=== PATIENT | male | born 1960 | race African-American/Black ===

== ENCOUNTER 2019-11-25 12:46 | Inpatient (IN) | payer MEDICAID ==
[~2019-11-25] VITALS: Ht 175.3 cm; Wt 63.5 kg
[2019-11-25] MEDS ORDERED: ONDANSETRON HCL 4MG/2ML INJ IV STA (14:33)
[2019-11-25] MEDS ORDERED: SODIUM CHLORIDE 0.9% 1,000 ML IV ONE (14:33)
[2019-11-25 14:59] LABS: CHLORIDE 77 mEq/L (98-107)
[2019-11-25 15:07] LABS: INR 1.1; PROTHROMBIN TIME 11.2 sec (9.6-11.0)
[2019-11-25 15:14] LABS: HEMATOCRIT. 42.9 % (42.0-52.0); HEMOGLOBIN. 13.9 g/dL (14.0-18.0); MEAN CORPUSCULAR HEMOGLOBIN 24.1 pg (28.0-32.0); MEAN CORPUSCULAR VOLUME 74.4 fL (80.0-94.0); MEAN PLATELET VOLUME 8.2 fl (7.4-10.4); PLATELET 290 x1000/uL (130-400); RED BLOOD CELL COUNT 5.76 mill/uL (4.7-6.1); RED CELL DISTRIBUTION WIDTH 15.4 % (11.6-14.6)
[2019-11-25 15:41] LABS: PLATELET ESTIMATE NORMAL
[2019-11-25 16:42] LABS: CLARITY URINE CLEAR (CLEAR); COLOR URINE YELLOW (YELLOW); KETONES URINE 2+ (NEGATIVE); LEUKOCYTE ESTERASE URINE NEGATIVE (NEGATIVE); NITRITE URINE NEGATIVE (NEGATIVE); OCCULT BLOOD URINE NEGATIVE (NEGATIVE); PROTEIN URINE TRACE (NEGATIVE); SPECIFIC GRAVITY URINE 1.028 (1.005-1.030)
[2019-11-25] MEDS ORDERED: LEVOFLOXACIN 500MG PREMIX 100 ML IV NR (17:45)
[2019-11-25] MEDS ORDERED: MORPHINE SULFATE 2 MG/ML CPJ (NOT FOR IM USE) IV PRN (19:15)
[2019-11-25] MEDS ORDERED: ONDANSETRON HCL 4MG/2ML INJ IV PRN (19:15)
[2019-11-25] MEDS ORDERED: SODIUM CHLORIDE 0.9% 1,000 ML IV SCH (19:15)
[2019-11-25] MEDS ORDERED: PIPERACILLIN/TAZOBACTAM 3.375 G in DEXT 5% WATER 100 ML IV SCH (19:30)
[2019-11-25 21:15] VITALS: BP 106/75
[2019-11-25] MEDS ORDERED: IOHEXOL-300 100 ML BOTTLE ONE (23:20)
[2019-11-26] VITALS: BP 105/68
[2019-11-26] MEDS: PIPERACILLIN/TAZOBACTAM 3.375 G in DEXT 5% WATER 100 ML IV SCH ×4 (00:16→22:26)
[2019-11-26] MEDS ORDERED: FERR-71 PO (03:32)
[2019-11-26] MEDS ORDERED: DICY10CA88 PO (03:32)
[2019-11-26] MEDS ORDERED: RIVA10TA PO (03:32)
[2019-11-26 04:00] VITALS: BP 95/63
[2019-11-26 06:34] LABS: CHLORIDE 87 mEq/L (98-107)
[2019-11-26 06:49] LABS: BASOPHILS % 0.1 % (0.0-2.0); EOSINOPHILS % 0.2 % (0.0-5.0); HEMATOCRIT. 40.5 % (42.0-52.0); HEMOGLOBIN. 13.4 g/dL (14.0-18.0); LYMPHOCYTES % 7.8 % (20.0-50.0); MEAN CORPUSCULAR HEMOGLOBIN 24.2 pg (28.0-32.0); MEAN CORPUSCULAR VOLUME 73.2 fL (80.0-94.0); MEAN PLATELET VOLUME 8.2 fl (7.4-10.4); MONOCYTES % 8.2 % (2.0-8.0); NEUTROPHILS % 83.7 % (40.0-76.0); PLATELET 393 x1000/uL (130-400); RED BLOOD CELL COUNT 5.53 mill/uL (4.7-6.1); RED CELL DISTRIBUTION WIDTH 15.3 % (11.6-14.6)
[2019-11-26 08:00] VITALS: BP 90/64
[2019-11-26] MEDS ORDERED: BUPIVACAINE HCL 0.5% (5MG/ML) 50ML ONE (09:15)
[2019-11-26] MEDS ORDERED: POTASSIUM CHLORIDE INJ 40 MEQ in DEXT 5% WATER 500 ML IV STA (09:21)
[2019-11-26] MEDS ORDERED: ONDANSETRON HCL 4MG/2ML INJ IV PRN ×2 (09:45→12:45)
[2019-11-26] MEDS ORDERED: ACETAMINOPHEN 650MG SUPP PR PRN ×2 (09:45)
[2019-11-26] MEDS ORDERED: SUCCINYLCHOLINE CHLORIDE 200MG/10ML IV ONE (10:00)
[2019-11-26] MEDS ORDERED: PROPOFOL 200MG/20ML VIAL IV ONE (10:00)
[2019-11-26] MEDS ORDERED: CEFAZOLIN SODIUM 1000MG/VIAL ONE (10:00)
[2019-11-26] MEDS ORDERED: METOCLOPRAMIDE HCL 10MG/2ML VIAL ONE (10:00)
[2019-11-26] MEDS ORDERED: EPHEDRINE SULFATE 50MG/ML VIAL ONE (10:00)
[2019-11-26] MEDS ORDERED: SODIUM CHLORIDE 0.9% 10ML VIAL ONE (10:00)
[2019-11-26] MEDS ORDERED: ONDANSETRON HCL 4MG/2ML INJ ONE (10:00)
[2019-11-26] MEDS ORDERED: PHENYLEPHRINE HCL 10 MG/ML 1ML (IV VIAL) IV ONE (10:00)
[2019-11-26] MEDS ORDERED: GLYCOPYRROLATE 0.2 MG/ML 2ML VIAL ONE (10:00)
[2019-11-26] MEDS ORDERED: FENTANYL CITRATE/PF 50MCG/ML 2ML VIAL ONE (10:00)
[2019-11-26] MEDS ORDERED: MIDAZOLAM HCL 2 MG/2 ML VIAL ONE (10:00)
[2019-11-26] MEDS ORDERED: ROCURONIUM BROMIDE 10MG/ML VIAL 5ML IV ONE (10:00)
[2019-11-26] MEDS ORDERED: NEOSTIGMINE METHYLSULFATE 1MG/ML 10 ML VIAL ONE (10:00)
[2019-11-26] MEDS ORDERED: POTASSIUM CHLORIDE INJ 40 MEQ in DEXT 5% WATER 250 ML IV NR (10:00)
[2019-11-26] MEDS ORDERED: LIDOCAINE HCL/PF 1% 10 MG/ML 5ML VIAL ONE (10:00)
[2019-11-26] MEDS ORDERED: ALBUMIN HUMAN 12.5G/250ML (5%) IV ONE ×2 (10:03→10:04)
[2019-11-26] MEDS ORDERED: ETOMIDATE 2MG/ML 10ML VIAL IV ONE (10:09)
[2019-11-26 11:56] LABS: HEMATOCRIT. 33.1 % (42.0-52.0); HEMOGLOBIN. 10.6 g/dL (14.0-18.0); MEAN CORPUSCULAR HEMOGLOBIN 23.8 pg (28.0-32.0); MEAN CORPUSCULAR VOLUME 74.1 fL (80.0-94.0); MEAN PLATELET VOLUME 7.4 fl (7.4-10.4); PLATELET 302 x1000/uL (130-400); RED BLOOD CELL COUNT 4.47 mill/uL (4.7-6.1); RED CELL DISTRIBUTION WIDTH 15.2 % (11.6-14.6)
[2019-11-26] MEDS ORDERED: LEVOFLOXACIN 500MG PREMIX 100 ML IV SCH (12:00)
[2019-11-26 12:02] LABS: CHLORIDE 97 mEq/L (98-107)
[2019-11-26] MEDS: HYDROMORPHONE HCL/PF 2MG/ML CPJ IV PRN ×3 (12:49→13:11)
[2019-11-26 14:08] LABS: PLATELET ESTIMATE NORMAL
[2019-11-26] MEDS: METRONIDAZOLE 500 MG PREMIX 100 ML IV SCH (15:10)
[2019-11-26 16:00] VITALS: BP 99/66
[2019-11-26 16:22] LABS: BG BASE EXCESS -4.2 mmol/L (-2.0-2.0); BG CARBOXYHEMOGLOBIN 0.7 % (0.5-1.5); BG DEOXYHEMOGLOBIN 2.3 % (0.0-5.0); BG FRACTION INSPIRED OXYGEN 28; BG HCO3 ACT 20.6 mmol/L (22.0-26.0); BG METHEMOGLOBIN 0.3 % (0.0-1.5); BG OXYGEN SATURATION 97.7 % (92.0-98.5); BG OXYHEMOGLOBIN 96.7 % (94.0-97.0); BG PCO2 36.9 mmHg (35.0-45.0); BG PH 7.365 (7.350-7.450); BG PO2 108.7 mmHg (75.0-100.0); BG SAMPLE SITE LEFT RADIAL; BG TOTAL HEMOGLOBIN 12.8 g/dL (12.0-18.0); BG VENT MODE NASAL CANNULA
[2019-11-26] MEDS: MORPHINE SULFATE 2 MG/ML CPJ (NOT FOR IM USE) IV PRN (17:02)
[2019-11-26] MEDS ORDERED: LORAZEPAM 2MG/ML CPJ IV PRN (20:15)
[2019-11-26 20:35] VITALS: BP 103/66
[2019-11-26] MEDS: DEXT 5%/0.45% NACL KCL 20MEQ/L 1,000 ML IV SCH (20:46)
[2019-11-26] MEDS: FAMOTIDINE 20MG/2ML VIAL IV SCH (20:47)
[2019-11-26 23:53] VITALS: BP 91/66
[2019-11-27] MEDS: PIPERACILLIN/TAZOBACTAM 3.375 G in DEXT 5% WATER 100 ML IV SCH ×2 (01:56→06:55)
[2019-11-27] MEDS: METRONIDAZOLE 500 MG PREMIX 100 ML IV SCH (02:28)
[2019-11-27 04:00] VITALS: BP 98/68
[2019-11-27 07:00] LABS: CHLORIDE 97 mEq/L (98-107)
[2019-11-27 07:02] LABS: HEMATOCRIT. 37.1 % (42.0-52.0); HEMOGLOBIN. 11.9 g/dL (14.0-18.0); MEAN CORPUSCULAR VOLUME 74.8 fL (80.0-94.0); MEAN PLATELET VOLUME 8.1 fl (7.4-10.4); PLATELET 305 x1000/uL (130-400); RED BLOOD CELL COUNT 4.96 mill/uL (4.7-6.1); RED CELL DISTRIBUTION WIDTH 15.2 % (11.6-14.6)
[2019-11-27 07:06] LABS: PHOSPHORUS 2.3 mg/dL (2.5-4.9)
[2019-11-27 08:00] VITALS: BP 100/66
[2019-11-27] MEDS: DEXT 5%/0.45% NACL KCL 20MEQ/L 1,000 ML IV SCH (08:00)
[2019-11-27] MEDS: FAMOTIDINE 20MG/2ML VIAL IV SCH ×2 (09:41→21:10)
[2019-11-27] MEDS ORDERED: METRONIDAZOLE 500 MG PREMIX 100 ML IV SCH (10:00)
[2019-11-27] MEDS: DEXT 5%/0.9% NACL 1,000 ML IV SCH ×2 (12:00→21:10)
[2019-11-27 12:10] VITALS: BP 106/72
[2019-11-27] MEDS: SODIUM PHOS,M-BASIC-D-BASIC 15 MM in DEXT 5% WATER 245 ML IV NR ×2 (14:00→17:35)
[2019-11-27 16:00] VITALS: BP 112/71
[2019-11-27] MEDS: MORPHINE SULFATE 4 MG/ML CPJ (NOT FOR IM USE) IV PRN ×2 (17:28→21:21)
[2019-11-27 17:58] LABS: PLATELET ESTIMATE NORMAL
[2019-11-27 19:34] LABS: SODIUM URINE RANDOM 67 mEq/L
[2019-11-27 20:27] VITALS: BP 113/73
[2019-11-28] VITALS: BP 95/61
[2019-11-28 04:00] VITALS: BP 103/68
[2019-11-28 07:11] LABS: CHLORIDE 102 mEq/L (98-107)
[2019-11-28 07:12] LABS: HEMATOCRIT. 31.1 % (42.0-52.0); HEMOGLOBIN. 10.1 g/dL (14.0-18.0); MEAN CORPUSCULAR HEMOGLOBIN 24.1 pg (28.0-32.0); MEAN CORPUSCULAR VOLUME 74.3 fL (80.0-94.0); PLATELET 254 x1000/uL (130-400); RED BLOOD CELL COUNT 4.18 mill/uL (4.7-6.1); RED CELL DISTRIBUTION WIDTH 15.5 % (11.6-14.6)
[2019-11-28 08:00] VITALS: BP 113/73
[2019-11-28] MEDS: DEXT 5%/0.9% NACL 1,000 ML IV SCH ×2 (08:58→18:00)
[2019-11-28] MEDS: FAMOTIDINE 20MG/2ML VIAL IV SCH ×2 (09:07→21:49)
[2019-11-28 12:00] VITALS: BP 112/75
[2019-11-28] MEDS ORDERED: POTASSIUM PHOS,M-BASIC-D-BASIC 20 MMOL in DEXT 5% WATER 243.3333 ML IV SCH (12:00)
[2019-11-28] MEDS ORDERED: POTASSIUM CHLORIDE INJ 40 MEQ in DEXT 5% WATER 250 ML IV SCH (16:00)
[2019-11-28] MEDS: MORPHINE SULFATE 2 MG/ML CPJ (NOT FOR IM USE) IV PRN (17:01)
[2019-11-28 20:00] VITALS: BP 127/87
[2019-11-28] MEDS: MORPHINE SULFATE 4 MG/ML CPJ (NOT FOR IM USE) IV PRN (21:49)
[2019-11-29] VITALS: BP 121/77
[2019-11-29 04:02] VITALS: BP 109/70
[2019-11-29] MEDS: DEXT 5%/0.9% NACL 1,000 ML IV SCH ×2 (04:08→13:13)
[2019-11-29 06:53] LABS: BASOPHILS % 0.4 % (0.0-2.0); EOSINOPHILS % 1.1 % (0.0-5.0); HEMATOCRIT. 27.6 % (42.0-52.0); HEMOGLOBIN. 9.2 g/dL (14.0-18.0); LYMPHOCYTES % 7.7 % (20.0-50.0); MEAN CORPUSCULAR HEMOGLOBIN 24.6 pg (28.0-32.0); MEAN CORPUSCULAR VOLUME 73.8 fL (80.0-94.0); MEAN PLATELET VOLUME 7.5 fl (7.4-10.4); MONOCYTES % 8.2 % (2.0-8.0); NEUTROPHILS % 82.6 % (40.0-76.0); PLATELET 245 x1000/uL (130-400); RED BLOOD CELL COUNT 3.73 mill/uL (4.7-6.1); RED CELL DISTRIBUTION WIDTH 15.1 % (11.6-14.6)
[2019-11-29 07:02] LABS: CHLORIDE 105 mEq/L (98-107)
[2019-11-29 07:14] LABS: PHOSPHORUS 2.1 mg/dL (2.5-4.9)
[2019-11-29 08:00] VITALS: BP 133/85
[2019-11-29] MEDS: FAMOTIDINE 20MG/2ML VIAL IV SCH ×2 (09:00→21:27)
[2019-11-29 09:03] LABS: PLATELET ESTIMATE NORMAL
[2019-11-29 12:00] VITALS: BP 128/77
[2019-11-29] MEDS ORDERED: POTASSIUM PHOS,M-BASIC-D-BASIC 30 MMOL in SODIUM CHLORIDE 0.9% 500 ML IV SCH (14:00)
[2019-11-29 16:00] VITALS: BP 118/79
[2019-11-29] MEDS: MORPHINE SULFATE 4 MG/ML CPJ (NOT FOR IM USE) IV PRN ×2 (16:24→22:16)
[2019-11-29 20:22] VITALS: BP 127/76
[2019-11-30 00:48] VITALS: BP 125/78
[2019-11-30 04:00] VITALS: BP 123/80
[2019-11-30 07:03] LABS: BASOPHILS % 0.3 % (0.0-2.0); EOSINOPHILS % 2.1 % (0.0-5.0); HEMATOCRIT. 29.4 % (42.0-52.0); HEMOGLOBIN. 9.6 g/dL (14.0-18.0); LYMPHOCYTES % 11.8 % (20.0-50.0); MEAN CORPUSCULAR HEMOGLOBIN 24.5 pg (28.0-32.0); MEAN CORPUSCULAR VOLUME 75.2 fL (80.0-94.0); MEAN PLATELET VOLUME 7.9 fl (7.4-10.4); MONOCYTES % 8.4 % (2.0-8.0); NEUTROPHILS % 77.4 % (40.0-76.0); PLATELET 276 x1000/uL (130-400); RED BLOOD CELL COUNT 3.92 mill/uL (4.7-6.1); RED CELL DISTRIBUTION WIDTH 15.2 % (11.6-14.6)
[2019-11-30 07:05] LABS: CHLORIDE 103 mEq/L (98-107)
[2019-11-30 07:14] LABS: PHOSPHORUS 2.9 mg/dL (2.5-4.9)
[2019-11-30 08:00] VITALS: BP 132/84
[2019-11-30] MEDS: DEXT 5%/0.9% NACL 1,000 ML IV SCH ×3 (09:56→20:03)
[2019-11-30] MEDS: FAMOTIDINE 20MG/2ML VIAL IV SCH ×2 (09:56→20:50)
[2019-11-30] MEDS: MORPHINE SULFATE 2 MG/ML CPJ (NOT FOR IM USE) IV PRN (10:10)
[2019-11-30 12:00] VITALS: BP 133/85
[2019-11-30 16:00] VITALS: BP 138/87
[2019-11-30 20:18] VITALS: BP 127/90
[2019-12-01 00:55] VITALS: BP 137/89
[2019-12-01 04:30] VITALS: BP 139/86
[2019-12-01] MEDS: DEXT 5%/0.9% NACL 1,000 ML IV SCH ×2 (06:28→16:46)
[2019-12-01 07:12] LABS: BASOPHILS % 0.3 % (0.0-2.0); EOSINOPHILS % 1.1 % (0.0-5.0); HEMATOCRIT. 30.4 % (42.0-52.0); HEMOGLOBIN. 9.9 g/dL (14.0-18.0); LYMPHOCYTES % 11.7 % (20.0-50.0); MEAN CORPUSCULAR HEMOGLOBIN 24.3 pg (28.0-32.0); MEAN CORPUSCULAR VOLUME 74.7 fL (80.0-94.0); MEAN PLATELET VOLUME 7.4 fl (7.4-10.4); MONOCYTES % 11.7 % (2.0-8.0); NEUTROPHILS % 75.2 % (40.0-76.0); PLATELET 323 x1000/uL (130-400); RED BLOOD CELL COUNT 4.07 mill/uL (4.7-6.1)
[2019-12-01 07:39] LABS: CHLORIDE 105 mEq/L (98-107)
[2019-12-01 08:00] VITALS: BP 128/86
[2019-12-01] MEDS: FAMOTIDINE 20MG/2ML VIAL IV SCH ×2 (09:16→20:27)
[2019-12-01 12:00] VITALS: BP 134/86
[2019-12-01] MEDS ORDERED: SODIUM PHOS,M-BASIC-D-BASIC 30 MM in DEXT 5% WATER 500 ML IV SCH (12:30)
[2019-12-01] MEDS ORDERED: MORPHINE SULFATE 2 MG/ML CPJ (NOT FOR IM USE) IV PRN (14:30)
[2019-12-01] MEDS ORDERED: MORPHINE SULFATE 4 MG/ML CPJ (NOT FOR IM USE) IV PRN (14:30)
[2019-12-01 16:00] VITALS: BP 136/81
[2019-12-01 19:07] LABS: CLARITY URINE CLEAR (CLEAR); COLOR URINE YELLOW (YELLOW); KETONES URINE NEGATIVE (NEGATIVE); LEUKOCYTE ESTERASE URINE NEGATIVE (NEGATIVE); NITRITE URINE NEGATIVE (NEGATIVE); OCCULT BLOOD URINE NEGATIVE (NEGATIVE); PROTEIN URINE NEGATIVE (NEGATIVE)
[2019-12-01 20:00] VITALS: BP 148/89
[2019-12-02 00:17] VITALS: BP 127/70
[2019-12-02] MEDS: DEXT 5%/0.9% NACL 1,000 ML IV SCH ×2 (02:00→12:00)
[2019-12-02 04:00] VITALS: BP 117/82
[2019-12-02 06:07] LABS: BASOPHILS % 0.2 % (0.0-2.0); EOSINOPHILS % 1.3 % (0.0-5.0); HEMATOCRIT. 29.6 % (42.0-52.0); HEMOGLOBIN. 9.7 g/dL (14.0-18.0); LYMPHOCYTES % 9.5 % (20.0-50.0); MEAN CORPUSCULAR HEMOGLOBIN 24.1 pg (28.0-32.0); MEAN CORPUSCULAR VOLUME 73.9 fL (80.0-94.0); MEAN PLATELET VOLUME 7.1 fl (7.4-10.4); MONOCYTES % 10.8 % (2.0-8.0); NEUTROPHILS % 78.2 % (40.0-76.0); PLATELET 301 x1000/uL (130-400); RED BLOOD CELL COUNT 4.01 mill/uL (4.7-6.1)
[2019-12-02 06:30] LABS: CHLORIDE 103 mEq/L (98-107)
[2019-12-02 06:36] LABS: PHOSPHORUS 2.9 mg/dL (2.5-4.9)
[2019-12-02 08:04] VITALS: BP 104/71
[2019-12-02] MEDS: FAMOTIDINE 20MG/2ML VIAL IV SCH (08:41)
[2019-12-02 11:47] VITALS: BP 111/77
[2019-12-02 14:46] VITALS: BP 111/77
== END 2019-12-02 16:05 | disposition home health service (06) | DRG 710 ==
LOC: ER 12:46 → 6WST 17:36 → EDBEDREQ 17:54 → ENRESERV 19:44
PROVIDERS: ADMIT Internal Medicine; ATTEND Internal Medicine
PROC: 0DTN0ZZ Resection of Sigmoid Colon, Open Approach (ICD-10-PCS; principal; 2019-11-26)
PROC: 0D1N0Z4 Bypass Sigmoid Colon to Cutaneous, Open Approach (ICD-10-PCS; 2019-11-26)
PROC: 0DNB4ZZ Release Ileum, Percutaneous Endoscopic Approach (ICD-10-PCS; 2019-11-26)
DX: A41.9 Sepsis, unspecified organism (principal); E87.1 Hypo-osmolality and hyponatremia; E87.6 Hypokalemia; K56.609 Unspecified intestinal obstruction, unspecified as to partial versus complete obstruction; E87.8 Other disorders of electrolyte and fluid balance, not elsewhere classified; N40.0 Benign prostatic hyperplasia without lower urinary tract symptoms; G89.29 Other chronic pain; M54.9 Dorsalgia, unspecified; K80.20 Calculus of gallbladder without cholecystitis without obstruction; I10 Essential (primary) hypertension; E83.39 Other disorders of phosphorus metabolism; R19.00 Intra-abdominal and pelvic swelling, mass and lump, unspecified site; E86.1 Hypovolemia; Z86.711 Personal history of pulmonary embolism; Z82.49 Family history of ischemic heart disease and other diseases of the circulatory system; Z79.01 Long term (current) use of anticoagulants; K57.80 Diverticulitis of intestine, part unspecified, with perforation and abscess without bleeding
CPT/HCPCS: 36415; 36600; 71045; 74177; 80048; 80053; 81003; 82375; 82533; 82805; 83605; 83735; 83935; 84100; 84145; 84300; 84443; 84484; 85025; 88305; 93005; 93970; 96365; 97116; 97162; 99291; J0330; J0690; J1170; J1956; J2060; J2250; J2270; J2370; J2405; J2543; J2704; J2710; J2765; J3010; J3480; J3490; J7030; J7040; J7042; J7060; P9041; Q9967

== ENCOUNTER 2021-05-22 21:05 | Inpatient (IN) | payer MEDICAID, OTHER ==
[~2021-05-22] VITALS: Ht 180.3 cm; Wt 81.2 kg
[~2021-05-22 21:05] MED LIST: DICY10CA88 PO; FERR-71 PO
[2021-05-22 22:31] LABS: CHLORIDE 105 mEq/L (98-107)
[2021-05-22 22:34] LABS: BASOPHILS % 0.4 % (0.0-2.0); EOSINOPHILS % 2.6 % (0.0-5.0); HEMATOCRIT. 40.7 % (42.0-52.0); HEMOGLOBIN. 13.1 g/dL (14.0-18.0); LYMPHOCYTES % 12.1 % (20.0-50.0); MEAN CORPUSCULAR VOLUME 77.4 fL (80.0-94.0); MEAN PLATELET VOLUME 8.4 fl (7.4-10.4); MONOCYTES % 7.9 % (2.0-8.0); PLATELET 191 x1000/uL (130-400); RED BLOOD CELL COUNT 5.25 mill/uL (4.7-6.1)
[2021-05-22 22:35] LABS: ETHANOL BLOOD < 10 mg/dL
[2021-05-22] MEDS ORDERED: IOHEXOL-350 100 ML BOTTLE ONE (23:21)
[2021-05-22] MEDS ORDERED: CALCIUM GLUCONATE 1GM PREMIX 50 ML IV ONE (23:45)
[2021-05-23 00:43] LABS: CLARITY URINE CLEAR (CLEAR); COLOR URINE YELLOW (YELLOW); KETONES URINE NEGATIVE (NEGATIVE); LEUKOCYTE ESTERASE URINE NEGATIVE (NEGATIVE); NITRITE URINE NEGATIVE (NEGATIVE); OCCULT BLOOD URINE NEGATIVE (NEGATIVE); PH URINE 7.5 (4.5-8.0); PROTEIN URINE NEGATIVE (NEGATIVE); SPECIFIC GRAVITY URINE 1.029 (1.005-1.030)
[2021-05-23 01:10] LABS: CANNABINOID URINE SCREEN NEGATIVE (NEGATIVE); OPIATES URINE SCREEN NEGATIVE (NEGATIVE); PHENCYCLIDINE URINE SCREEN NEGATIVE (NEGATIVE)
[2021-05-23 01:11] LABS: *AMPHETAMINES SCREEN URINE NEGATIVE (NEGATIVE); *BARBITURATES SCREEN URINE NEGATIVE (NEGATIVE); *BENZODIAZEPINES SCREEN URINE NEGATIVE (NEGATIVE); *COCAINE SCREEN URINE NEGATIVE (NEGATIVE); METHADONE URINE SCREEN NEGATIVE (NEGATIVE)
[2021-05-23] MEDS: ASPIRIN 81MG TABLET PO SCH (12:00)
[2021-05-23] MEDS: ENOXAPARIN 40MG/0.4ML SYR SUBCUT SCH (13:56)
[2021-05-23 15:56] VITALS: BP 99/62
[2021-05-23 16:35] VITALS: BP 99/62
[2021-05-23] MEDS ORDERED: LORAZEPAM 2MG/ML CPJ IV PRN (17:00)
[2021-05-23] MEDS ORDERED: INFLUENZA VACCINE IM ONE (17:15)
[2021-05-23 20:00] VITALS: BP 114/59
[2021-05-23] MEDS: ATORVASTATIN CALCIUM 40MG TABLET PO SCH (21:35)
[2021-05-24] VITALS: BP 96/54
[2021-05-24 04:00] VITALS: BP 97/55
[2021-05-24 08:00] VITALS: BP 99/53
[2021-05-24] MEDS: ASPIRIN 81MG TABLET PO SCH (08:29)
[2021-05-24] MEDS: ENOXAPARIN 40MG/0.4ML SYR SUBCUT SCH (08:29)
[2021-05-24 12:00] VITALS: BP 115/71
[2021-05-24 15:47] VITALS: BP 114/72
[2021-05-24] MEDS: HYDROCODONE/ACETAMINOPHEN 5/325MG TABLET PO PRN (16:03)
[2021-05-24] MEDS: DEXAMETHASONE 4MG/ML 1ML VIAL IV SCH (17:12)
[2021-05-24 20:00] VITALS: BP 127/85
[2021-05-24 21:46] LABS: PROTHROMBIN TIME 10.9 sec (9.6-11.0)
[2021-05-24] MEDS: ATORVASTATIN CALCIUM 40MG TABLET PO SCH (21:49)
[2021-05-25] VITALS (48 sets, daily range): BP systolic 0–280; BP diastolic -1–275
[2021-05-25] MEDS: DEXAMETHASONE 4MG/ML 1ML VIAL IV SCH ×4 (01:15→17:57)
[2021-05-25] MEDS ORDERED: GENTAMICIN SULF 40MG/ML 2ML VIAL ONE (08:05)
[2021-05-25] MEDS ORDERED: LIDOCAINE HCL/EPINEPHRINE 1%-EPI 1:100,000 30 ML VIAL INFIL ONE (08:05)
[2021-05-25] MEDS ORDERED: THROMBIN (BOVINE) 5000 UNITS/VIAL TOP ONE (08:06)
[2021-05-25] MEDS ORDERED: FENTANYL CITRATE/PF 50MCG/ML 2ML VIAL ONE ×2 (09:23→10:08)
[2021-05-25] MEDS ORDERED: MIDAZOLAM HCL 2 MG/2 ML VIAL ONE (09:23)
[2021-05-25] MEDS ORDERED: NEOSTIGMINE METHYLSULFATE 1MG/ML 10 ML VIAL ONE (09:23)
[2021-05-25] MEDS ORDERED: PROPOFOL 200MG/20ML VIAL IV ONE (09:23)
[2021-05-25] MEDS ORDERED: ROCURONIUM BROMIDE 10MG/ML VIAL 5ML IV ONE (09:23)
[2021-05-25] MEDS ORDERED: GLYCOPYRROLATE 0.2 MG/ML 2ML VIAL ONE (09:24)
[2021-05-25] MEDS ORDERED: DEXAMETHASONE 4MG/ML 1ML VIAL ONE (09:24)
[2021-05-25] MEDS ORDERED: ONDANSETRON HCL 4MG/2ML INJ ONE (09:43)
[2021-05-25] MEDS ORDERED: PHENYLEPHRINE HCL 10 MG/ML 1ML (IV VIAL) IV ONE (10:03)
[2021-05-25] MEDS ORDERED: HYDROMORPHONE HCL/PF 2MG/ML CPJ IV PRN (10:45)
[2021-05-25] MEDS ORDERED: LABETALOL 5MG/ML SYR 20 MG/4 ML SYRINGE IV PRN (10:45)
[2021-05-25] MEDS ORDERED: MEPERIDINE HCL/PF 25MG/ML CPJ IV PRN (10:45)
[2021-05-25] MEDS ORDERED: ONDANSETRON HCL 4MG/2ML INJ IV PRN (10:45)
[2021-05-25] MEDS ORDERED: NICARDIPINE 100 MG in SODIUM CHLORIDE 0.9% 60 ML IV PRN (11:30)
[2021-05-25] MEDS ORDERED: NALOXONE HCL 0.4MG/ML VIAL IV PRN (11:45)
[2021-05-25] MEDS ORDERED: CEFAZOLIN SODIUM 1000MG/VIAL IV SCH (14:00)
[2021-05-25] MEDS: DEXT 5%/LACTATED RINGERS 1,000 ML IV SCH ×2 (14:03→21:45)
[2021-05-25] MEDS: CEFAZOLIN 1000MG PREMIX 50 ML IV SCH ×2 (14:40→22:00)
[2021-05-25] MEDS: MORPHINE SULFATE 2 MG/ML CPJ (NOT FOR IM USE) IV PRN ×2 (14:42→17:57)
[2021-05-25] MEDS ORDERED: IPRATROPIUM/ALBUTEROL 0.5-3(2.5)MG/3ML NEB HHN PRN (17:30)
[2021-05-25] MEDS: ATORVASTATIN CALCIUM 40MG TABLET PO SCH (21:00)
[2021-05-26] VITALS (22 sets, daily range): BP systolic 101–156; BP diastolic 56–104
[2021-05-26] MEDS: DEXAMETHASONE 4MG/ML 1ML VIAL IV SCH ×4 (00:59→17:26)
[2021-05-26] MEDS: CEFAZOLIN 1000MG PREMIX 50 ML IV SCH ×3 (05:23→21:16)
[2021-05-26] MEDS: DEXT 5%/LACTATED RINGERS 1,000 ML IV SCH ×2 (08:48→13:45)
[2021-05-26] MEDS: MORPHINE SULFATE 2 MG/ML CPJ (NOT FOR IM USE) IV PRN ×2 (08:48→15:17)
[2021-05-26] MEDS ORDERED: DIAZEPAM 5 MG TABLET PO NR (09:45)
[2021-05-26] MEDS: ATORVASTATIN CALCIUM 40MG TABLET PO SCH (21:16)
[2021-05-27] VITALS (9 sets, daily range): BP systolic 124–142; BP diastolic 68–98
[2021-05-27] MEDS: MORPHINE SULFATE 2 MG/ML CPJ (NOT FOR IM USE) IV PRN ×5 (02:36→19:40)
[2021-05-27] MEDS: CEFAZOLIN 1000MG PREMIX 50 ML IV SCH ×2 (06:00→13:34)
[2021-05-27] MEDS ORDERED: HYDRALAZINE 20MG/ML VIAL IV PRN (11:45)
[2021-05-27] MEDS: ATORVASTATIN CALCIUM 40MG TABLET PO SCH (21:25)
[2021-05-27] MEDS: HYDROCODONE/ACETAMINOPHEN 5/325MG TABLET PO PRN (21:28)
[2021-05-28] VITALS: BP 116/67
[2021-05-28 04:00] VITALS: BP 117/79
[2021-05-28] MEDS: HYDROCODONE/ACETAMINOPHEN 5/325MG TABLET PO PRN ×4 (04:46→21:07)
[2021-05-28 07:53] LABS: BASOPHILS % 0.1 % (0.0-2.0); EOSINOPHILS % 0.2 % (0.0-5.0); HEMATOCRIT. 38.4 % (42.0-52.0); HEMOGLOBIN. 12.5 g/dL (14.0-18.0); LYMPHOCYTES % 15.7 % (20.0-50.0); MEAN CORPUSCULAR HEMOGLOBIN 25.2 pg (28.0-32.0); MEAN CORPUSCULAR VOLUME 77.6 fL (80.0-94.0); MEAN PLATELET VOLUME 8.6 fl (7.4-10.4); MONOCYTES % 11.5 % (2.0-8.0); NEUTROPHILS % 72.5 % (40.0-76.0); PLATELET 190 x1000/uL (130-400); RED BLOOD CELL COUNT 4.95 mill/uL (4.7-6.1)
[2021-05-28 07:54] LABS: CHLORIDE 104 mEq/L (98-107)
[2021-05-28 08:00] VITALS: BP 107/64
[2021-05-28 12:00] VITALS: BP 113/65
[2021-05-28 16:00] VITALS: BP 101/65
[2021-05-28 20:00] VITALS: BP 113/73
[2021-05-28] MEDS: ATORVASTATIN CALCIUM 40MG TABLET PO SCH (21:07)
[2021-05-28] MEDS ORDERED: HYDRALAZINE 5 MG in SODIUM CHLORIDE 0.9% 50 ML IV PRN (22:30)
[2021-05-28] MEDS ORDERED: HYDRALAZINE 10 MG in SODIUM CHLORIDE 0.9% 49.5 ML IV PRN (22:30)
[2021-05-29] VITALS: BP 114/72
[2021-05-29] MEDS: HYDROCODONE/ACETAMINOPHEN 5/325MG TABLET PO PRN ×4 (03:23→20:24)
[2021-05-29 04:00] VITALS: BP 97/64
[2021-05-29 08:00] VITALS: BP 101/71
[2021-05-29 12:00] VITALS: BP 109/73
[2021-05-29 16:00] VITALS: BP 105/68
[2021-05-29 20:00] VITALS: BP 97/59
[2021-05-29] MEDS: ATORVASTATIN CALCIUM 40MG TABLET PO SCH (20:23)
[2021-05-30] VITALS: BP 95/59
[2021-05-30] MEDS: HYDROCODONE/ACETAMINOPHEN 5/325MG TABLET PO PRN ×4 (00:56→20:14)
[2021-05-30 04:00] VITALS: BP 91/60
[2021-05-30 08:00] VITALS: BP 91/54
[2021-05-30] MEDS ORDERED: ACETAMINOPHEN 325MG TABLET PO PRN (09:45)
[2021-05-30 12:00] VITALS: BP 102/68
[2021-05-30 16:00] VITALS: BP 98/64
[2021-05-30 20:00] VITALS: BP 98/66
[2021-05-30] MEDS: ATORVASTATIN CALCIUM 40MG TABLET PO SCH (20:15)
[2021-05-31] VITALS: BP 111/72
[2021-05-31] MEDS: HYDROCODONE/ACETAMINOPHEN 5/325MG TABLET PO PRN ×4 (01:18→16:30)
[2021-05-31 04:00] VITALS: BP 98/66
[2021-05-31 08:00] VITALS: BP 94/64
[2021-05-31 12:00] VITALS: BP 93/63
[2021-05-31 16:00] VITALS: BP 101/67
[2021-05-31 16:50] VITALS: BP 101/67
== END 2021-05-31 17:00 | DRG 321 ==
LOC: ER 21:05 → MICUSO 05-23 00:39 → EDBEDREQ 05-23 00:44 → EDBEDREQDT 05-23 00:44 → EDBEDREQTM 05-23 00:44 → EDBEDREQSVC 05-23 00:44 → 6WST 05-23 16:19 → 5EST 05-25 11:40 → 6EST 05-27 15:32
PROVIDERS: ADMIT Internal Medicine; ATTEND Internal Medicine
PROC: 0RG2071 Fusion of 2 or more Cervical Vertebral Joints with Autologous Tissue Substitute, Posterior Approach, Posterior Column, Open Approach (ICD-10-PCS; principal; 2021-05-25)
PROC: 01N10ZZ Release Cervical Nerve, Open Approach (ICD-10-PCS; 2021-05-25)
PROC: 4A11X4G Monitoring of Peripheral Nervous Electrical Activity, Intraoperative, External Approach (ICD-10-PCS; 2021-05-25)
DX: M48.02 Spinal stenosis, cervical region (principal); G82.50 Quadriplegia, unspecified; E44.0 Moderate protein-calorie malnutrition; R47.01 Aphasia; E78.5 Hyperlipidemia, unspecified; I10 Essential (primary) hypertension; M47.22 Other spondylosis with radiculopathy, cervical region; N40.0 Benign prostatic hyperplasia without lower urinary tract symptoms; D64.9 Anemia, unspecified; M47.12 Other spondylosis with myelopathy, cervical region; E78.00 Pure hypercholesterolemia, unspecified; Z20.822 Contact with and (suspected) exposure to COVID-19; R13.10 Dysphagia, unspecified; L89.90 Pressure ulcer of unspecified site, unspecified stage; Z93.3 Colostomy status; Z90.49 Acquired absence of other specified parts of digestive tract; Z79.899 Other long term (current) drug therapy; Z68.25 Body mass index [BMI] 25.0-25.9, adult; Z86.711 Personal history of pulmonary embolism; Z86.718 Personal history of other venous thrombosis and embolism; G95.20 Unspecified cord compression
CPT/HCPCS: 36415; 70496; 70498; 70551; 71045; 72040; 72141; 76000; 80048; 80053; 80061; 80305; 80320; 81003; 82962; 83735; 84484; 85025; 86850; 86900; 87426; 88304; 88311; 90686; 92523; 92610; 93005; 93306; 95925; 95926; 95928; 95929; 97116; 97163; 97166; 97530; 97535; 99291; C1713; J0610; J0690; J1100; J1170; J1580; J1650; J2060; J2250; J2270; J2370; J2405; J2704; J2710; J3010; J3490; J7121; Q9967; G0480

== ENCOUNTER 2021-05-31 17:08 | Inpatient (IN) | payer OTHER ==
[~2021-05-31] VITALS: Ht 177.8 cm; Wt 77.6 kg
[2021-05-31 18:44] VITALS: BP 99/63
[2021-05-31] MEDS ORDERED: NALOXONE HCL 0.4 MG/ML 1ML VIAL IV NR (19:15)
[2021-05-31] MEDS ORDERED: ACETAMINOPHEN 325MG TABLET PO PRN (19:15)
[2021-05-31] MEDS ORDERED: HYDRALAZINE 20 MG in SODIUM CHLORIDE 0.9% 49.5 ML IV PRN (19:15)
[2021-05-31] MEDS ORDERED: NALOXONE HCL 0.4MG/ML VIAL IV PRN (19:30)
[2021-05-31 20:00] VITALS: BP 107/72
[2021-05-31] MEDS: ATORVASTATIN CALCIUM 40MG TABLET PO SCH (20:58)
[2021-05-31] MEDS: HYDROCODONE/ACETAMINOPHEN 5/325MG TABLET PO PRN (21:10)
[2021-06-01] MEDS: HYDROCODONE/ACETAMINOPHEN 5/325MG TABLET PO PRN ×6 (01:58→21:24)
[2021-06-01] MEDS: IPRATROPIUM/ALBUTEROL 0.5-3(2.5)MG/3ML NEB HHN SCH ×3 (05:22→13:00)
[2021-06-01 07:39] LABS: CHLORIDE 100 mEq/L (98-107)
[2021-06-01 07:44] LABS: BASOPHILS % 0.2 % (0.0-2.0); EOSINOPHILS % 1.6 % (0.0-5.0); HEMATOCRIT. 40.7 % (42.0-52.0); HEMOGLOBIN. 13.5 g/dL (14.0-18.0); LYMPHOCYTES % 18.6 % (20.0-50.0); MEAN CORPUSCULAR HEMOGLOBIN 25.5 pg (28.0-32.0); MEAN CORPUSCULAR VOLUME 76.7 fL (80.0-94.0); MEAN PLATELET VOLUME 8.8 fl (7.4-10.4); MONOCYTES % 11.6 % (2.0-8.0); PLATELET 244 x1000/uL (130-400); RED CELL DISTRIBUTION WIDTH 14.8 % (11.6-14.6)
[2021-06-01 20:00] VITALS: BP 105/74
[2021-06-01] MEDS: ATORVASTATIN CALCIUM 40MG TABLET PO SCH (21:25)
[2021-06-02] MEDS: HYDROCODONE/ACETAMINOPHEN 5/325MG TABLET PO PRN ×4 (02:00→17:46)
[2021-06-02 06:41] LABS: BASOPHILS % 0.3 % (0.0-2.0); EOSINOPHILS % 2.3 % (0.0-5.0); HEMATOCRIT. 39.9 % (42.0-52.0); HEMOGLOBIN. 13.1 g/dL (14.0-18.0); LYMPHOCYTES % 15.6 % (20.0-50.0); MEAN CORPUSCULAR HEMOGLOBIN 25.3 pg (28.0-32.0); MEAN PLATELET VOLUME 8.5 fl (7.4-10.4); MONOCYTES % 11.4 % (2.0-8.0); NEUTROPHILS % 70.4 % (40.0-76.0); PLATELET 259 x1000/uL (130-400); RED BLOOD CELL COUNT 5.19 mill/uL (4.7-6.1); RED CELL DISTRIBUTION WIDTH 14.6 % (11.6-14.6)
[2021-06-02 07:01] LABS: CHLORIDE 99 mEq/L (98-107)
[2021-06-02 07:16] LABS: TOTAL IRON BINDING CAPACITY 287 ug/dL (250-450)
[2021-06-02 07:20] LABS: FOLIC ACID (FOLATE) SERUM 8.2 ng/mL (>5.38)
[2021-06-02 08:00] VITALS: BP 97/68
[2021-06-02] MEDS ORDERED: CYANOCOBALAMIN 1000MCG/ML VIAL IM NR (09:00)
[2021-06-02] MEDS: FERROUS SULFATE 325MG TABLET PO SCH ×3 (09:45→17:46)
[2021-06-02] MEDS: DOCUSATE SODIUM 100MG CAPSULE PO SCH ×2 (09:45→17:46)
[2021-06-02] MEDS: ASCORBIC ACID 500 MG TABLET PO SCH (09:45)
[2021-06-02 18:46] LABS: PROSTRATE SPECIFIC AG TOTAL 4.87 ng/mL (0.0-4.0)
[2021-06-02 20:00] VITALS: BP 101/71
[2021-06-02] MEDS: ATORVASTATIN CALCIUM 40MG TABLET PO SCH (20:58)
[2021-06-03] MEDS: HYDROCODONE/ACETAMINOPHEN 5/325MG TABLET PO PRN ×4 (00:06→20:21)
[2021-06-03 08:00] VITALS: BP 115/83
[2021-06-03] MEDS: FERROUS SULFATE 325MG TABLET PO SCH ×3 (09:40→17:18)
[2021-06-03] MEDS: ASCORBIC ACID 500 MG TABLET PO SCH (09:40)
[2021-06-03] MEDS: DOCUSATE SODIUM 100MG CAPSULE PO SCH ×2 (09:41→17:00)
[2021-06-03] MEDS: GABAPENTIN 100MG CAPSULE PO SCH ×2 (13:58→21:05)
[2021-06-03 20:00] VITALS: BP 100/64
[2021-06-03] MEDS: ATORVASTATIN CALCIUM 40MG TABLET PO SCH (20:21)
[2021-06-04] MEDS: HYDROCODONE/ACETAMINOPHEN 5/325MG TABLET PO PRN ×4 (01:58→18:03)
[2021-06-04] MEDS: GABAPENTIN 100MG CAPSULE PO SCH (05:16)
[2021-06-04 07:59] VITALS: BP 97/65
[2021-06-04] MEDS: ASCORBIC ACID 500 MG TABLET PO SCH (08:06)
[2021-06-04] MEDS: FERROUS SULFATE 325MG TABLET PO SCH ×3 (08:06→18:03)
[2021-06-04] MEDS: DOCUSATE SODIUM 100MG CAPSULE PO SCH ×2 (08:06→17:00)
[2021-06-04 09:11] LABS: BASOPHILS % 0.4 % (0.0-2.0); EOSINOPHILS % 2.6 % (0.0-5.0); HEMATOCRIT. 37.9 % (42.0-52.0); HEMOGLOBIN. 12.4 g/dL (14.0-18.0); LYMPHOCYTES % 18.4 % (20.0-50.0); MEAN CORPUSCULAR HEMOGLOBIN 25.3 pg (28.0-32.0); MEAN CORPUSCULAR VOLUME 77.4 fL (80.0-94.0); MEAN PLATELET VOLUME 8.2 fl (7.4-10.4); MONOCYTES % 7.5 % (2.0-8.0); NEUTROPHILS % 71.1 % (40.0-76.0); PLATELET 298 x1000/uL (130-400); RED BLOOD CELL COUNT 4.89 mill/uL (4.7-6.1); RED CELL DISTRIBUTION WIDTH 14.5 % (11.6-14.6)
[2021-06-04 09:35] LABS: CHLORIDE 99 mEq/L (98-107)
[2021-06-04] MEDS: GABAPENTIN 300MG CAPSULE PO SCH ×2 (13:12→21:33)
[2021-06-04 20:00] VITALS: BP 101/67
[2021-06-04] MEDS: ATORVASTATIN CALCIUM 40MG TABLET PO SCH (21:33)
[2021-06-05] MEDS: GABAPENTIN 300MG CAPSULE PO SCH ×3 (05:43→21:53)
[2021-06-05 08:00] VITALS: BP 105/74
[2021-06-05] MEDS: FERROUS SULFATE 325MG TABLET PO SCH ×3 (08:41→17:10)
[2021-06-05] MEDS: DOCUSATE SODIUM 100MG CAPSULE PO SCH ×2 (08:41→17:00)
[2021-06-05] MEDS: ASCORBIC ACID 500 MG TABLET PO SCH (08:41)
[2021-06-05] MEDS: HYDROCODONE/ACETAMINOPHEN 5/325MG TABLET PO PRN ×3 (08:41→23:22)
[2021-06-05 20:00] VITALS: BP 103/70
[2021-06-05] MEDS: ATORVASTATIN CALCIUM 40MG TABLET PO SCH (21:53)
[2021-06-05] MEDS ORDERED: NALOXONE HCL 0.4 MG/ML 1ML VIAL IV PRN (23:15)
[2021-06-06] MEDS: HYDROCODONE/ACETAMINOPHEN 5/325MG TABLET PO PRN ×3 (05:43→17:50)
[2021-06-06] MEDS: GABAPENTIN 300MG CAPSULE PO SCH ×3 (06:00→21:07)
[2021-06-06 07:58] VITALS: BP 104/71
[2021-06-06] MEDS: FERROUS SULFATE 325MG TABLET PO SCH ×3 (08:34→17:41)
[2021-06-06] MEDS: DOCUSATE SODIUM 100MG CAPSULE PO SCH ×3 (08:34→17:41)
[2021-06-06] MEDS: ASCORBIC ACID 500 MG TABLET PO SCH (08:34)
[2021-06-06 19:42] VITALS: BP 104/72
[2021-06-06] MEDS: ATORVASTATIN CALCIUM 40MG TABLET PO SCH (21:07)
[2021-06-07] MEDS: HYDROCODONE/ACETAMINOPHEN 5/325MG TABLET PO PRN ×4 (00:38→17:26)
[2021-06-07] MEDS: GABAPENTIN 300MG CAPSULE PO SCH ×3 (05:10→21:14)
[2021-06-07 08:00] VITALS: BP 106/64
[2021-06-07] MEDS: DOCUSATE SODIUM 100MG CAPSULE PO SCH ×2 (09:00→16:22)
[2021-06-07] MEDS: FERROUS SULFATE 325MG TABLET PO SCH ×3 (09:04→16:22)
[2021-06-07] MEDS: ASCORBIC ACID 500 MG TABLET PO SCH (09:04)
[2021-06-07] MEDS: METHOCARBAMOL 500MG TABLET PO PRN (16:22)
[2021-06-07 20:00] VITALS: BP 104/56
[2021-06-07] MEDS: ATORVASTATIN CALCIUM 40MG TABLET PO SCH (21:14)
[2021-06-08] MEDS: HYDROCODONE/ACETAMINOPHEN 5/325MG TABLET PO PRN ×4 (03:11→17:50)
[2021-06-08] MEDS: GABAPENTIN 300MG CAPSULE PO SCH ×3 (06:06→21:08)
[2021-06-08 08:00] VITALS: BP 99/67
[2021-06-08] MEDS: FERROUS SULFATE 325MG TABLET PO SCH ×3 (08:24→17:50)
[2021-06-08] MEDS: DOCUSATE SODIUM 100MG CAPSULE PO SCH ×3 (08:24→17:00)
[2021-06-08] MEDS: ASCORBIC ACID 500 MG TABLET PO SCH (08:24)
[2021-06-08 20:00] VITALS: BP 96/65
[2021-06-08] MEDS: ATORVASTATIN CALCIUM 40MG TABLET PO SCH (20:21)
[2021-06-08] MEDS: METHOCARBAMOL 500MG TABLET PO PRN (20:21)
[2021-06-09] MEDS: HYDROCODONE/ACETAMINOPHEN 5/325MG TABLET PO PRN ×3 (02:31→17:56)
[2021-06-09] MEDS: GABAPENTIN 300MG CAPSULE PO SCH ×3 (06:01→21:47)
[2021-06-09 07:55] LABS: CHLORIDE 100 mEq/L (98-107)
[2021-06-09 07:58] LABS: BASOPHILS % 0.6 % (0.0-2.0); HEMATOCRIT. 37.8 % (42.0-52.0); HEMOGLOBIN. 12.4 g/dL (14.0-18.0); LYMPHOCYTES % 19.7 % (20.0-50.0); MEAN CORPUSCULAR HEMOGLOBIN 25.4 pg (28.0-32.0); MEAN CORPUSCULAR VOLUME 77.6 fL (80.0-94.0); MEAN PLATELET VOLUME 7.4 fl (7.4-10.4); MONOCYTES % 6.6 % (2.0-8.0); NEUTROPHILS % 70.1 % (40.0-76.0); PLATELET 327 x1000/uL (130-400); RED BLOOD CELL COUNT 4.88 mill/uL (4.7-6.1); RED CELL DISTRIBUTION WIDTH 14.4 % (11.6-14.6)
[2021-06-09] MEDS: DOCUSATE SODIUM 100MG CAPSULE PO SCH ×2 (08:37→17:56)
[2021-06-09] MEDS: HYDROCODONE/ACETAMINOPHEN 10/325MG TABLET PO PRN (08:38)
[2021-06-09] MEDS: ASCORBIC ACID 500 MG TABLET PO SCH (08:38)
[2021-06-09] MEDS: FERROUS SULFATE 325MG TABLET PO SCH ×3 (08:38→17:56)
[2021-06-09 09:00] VITALS: BP 112/75
[2021-06-09 20:00] VITALS: BP 99/74
[2021-06-09] MEDS: METHOCARBAMOL 500MG TABLET PO PRN (20:28)
[2021-06-09] MEDS: ATORVASTATIN CALCIUM 40MG TABLET PO SCH (20:28)
[2021-06-10] MEDS: HYDROCODONE/ACETAMINOPHEN 10/325MG TABLET PO PRN ×4 (03:39→19:07)
[2021-06-10] MEDS: GABAPENTIN 300MG CAPSULE PO SCH ×3 (05:47→21:05)
[2021-06-10 07:01] LABS: BASOPHILS % 0.8 % (0.0-2.0); CHLORIDE 104 mEq/L (98-107); EOSINOPHILS % 3.4 % (0.0-5.0); HEMATOCRIT. 40.8 % (42.0-52.0); HEMOGLOBIN. 13.2 g/dL (14.0-18.0); LYMPHOCYTES % 16.1 % (20.0-50.0); MEAN CORPUSCULAR HEMOGLOBIN 25.2 pg (28.0-32.0); MEAN CORPUSCULAR VOLUME 77.5 fL (80.0-94.0); MEAN PLATELET VOLUME 7.7 fl (7.4-10.4); MONOCYTES % 7.9 % (2.0-8.0); NEUTROPHILS % 71.8 % (40.0-76.0); PLATELET 333 x1000/uL (130-400); RED BLOOD CELL COUNT 5.26 mill/uL (4.7-6.1); RED CELL DISTRIBUTION WIDTH 14.5 % (11.6-14.6)
[2021-06-10 08:00] VITALS: BP 91/62
[2021-06-10] MEDS: DOCUSATE SODIUM 100MG CAPSULE PO SCH ×2 (08:47→17:55)
[2021-06-10] MEDS: FERROUS SULFATE 325MG TABLET PO SCH ×3 (08:48→17:55)
[2021-06-10] MEDS: METHOCARBAMOL 500MG TABLET PO PRN ×2 (08:48→17:55)
[2021-06-10] MEDS: ASCORBIC ACID 500 MG TABLET PO SCH (08:50)
[2021-06-10] MEDS ORDERED: HYDR-4001 PO (12:30)
[2021-06-10] MEDS ORDERED: GABA-532 PO (12:30)
[2021-06-10 20:00] VITALS: BP 105/66
[2021-06-10] MEDS: ATORVASTATIN CALCIUM 40MG TABLET PO SCH (21:05)
[2021-06-11] MEDS: HYDROCODONE/ACETAMINOPHEN 10/325MG TABLET PO PRN ×3 (01:32→14:06)
[2021-06-11] MEDS: GABAPENTIN 300MG CAPSULE PO SCH ×2 (05:03→13:34)
[2021-06-11 08:00] VITALS: BP 108/70
[2021-06-11] MEDS: DOCUSATE SODIUM 100MG CAPSULE PO SCH ×2 (09:00→09:06)
[2021-06-11] MEDS: FERROUS SULFATE 325MG TABLET PO SCH ×2 (09:06→13:34)
[2021-06-11] MEDS: ASCORBIC ACID 500 MG TABLET PO SCH (09:08)
[2021-06-11] MEDS: METHOCARBAMOL 500MG TABLET PO PRN (11:08)
[2021-06-11 14:09] VITALS: BP 108/70
[2021-06-11] MEDS ORDERED: NALOXONE HCL 0.4MG/ML VIAL IV PRN (17:15)
[2021-06-12 17:09] LABS: 25-HYDROXY VITAMIN D3 11 ng/mL (.)
== END 2021-06-11 15:40 | disposition home health service (06) | DRG 347 ==
LOC: EDBD
PROVIDERS: ADMIT Physical Medicine & Rehabilitation Spinal Cord Injury Medicine; ATTEND Internal Medicine
DX: M48.02 Spinal stenosis, cervical region (principal); G82.50 Quadriplegia, unspecified; E44.0 Moderate protein-calorie malnutrition; R47.01 Aphasia; E87.1 Hypo-osmolality and hyponatremia; E78.00 Pure hypercholesterolemia, unspecified; R26.9 Unspecified abnormalities of gait and mobility; R53.81 Other malaise; I10 Essential (primary) hypertension; M47.22 Other spondylosis with radiculopathy, cervical region; E78.5 Hyperlipidemia, unspecified; M79.609 Pain in unspecified limb; R20.0 Anesthesia of skin; M47.12 Other spondylosis with myelopathy, cervical region; D50.9 Iron deficiency anemia, unspecified; I95.9 Hypotension, unspecified; E87.6 Hypokalemia; Z90.49 Acquired absence of other specified parts of digestive tract; Z86.711 Personal history of pulmonary embolism; Z86.718 Personal history of other venous thrombosis and embolism; Z93.3 Colostomy status; Z87.891 Personal history of nicotine dependence; Z82.49 Family history of ischemic heart disease and other diseases of the circulatory system; Z79.899 Other long term (current) drug therapy; Z68.24 Body mass index [BMI] 24.0-24.9, adult; G62.9 Polyneuropathy, unspecified
CPT/HCPCS: 36415; 80048; 80053; 80061; 82306; 82533; 82607; 82728; 82746; 83540; 83550; 83930; 83935; 84134; 84153; 84443; 85025; 92523; 92610; 93970; 97110; 97116; 97150; 97162; 97166; 97530; 97535; J3420; L0172; G0103

== ENCOUNTER 2022-01-24 17:44 | Inpatient (IN) | payer MEDICAID, OTHER ==
[~2022-01-24] VITALS: Ht 175.3 cm; Wt 86.4 kg
[~2022-01-24 17:44] MED LIST changes: +GABA-532 PO; +HYDR-4001 PO
[2022-01-24 19:24] LABS: BASOPHILS % 0.4 % (0.0-2.0); EOSINOPHILS % 1.2 % (0.0-5.0); HEMATOCRIT. 38.8 % (42.0-52.0); HEMOGLOBIN. 12.7 g/dL (14.0-18.0); LYMPHOCYTES % 12.1 % (20.0-50.0); MEAN CORPUSCULAR HEMOGLOBIN 25.7 pg (28.0-32.0); MEAN CORPUSCULAR VOLUME 78.6 fL (80.0-94.0); MEAN PLATELET VOLUME 8.3 fl (7.4-10.4); MONOCYTES % 5.2 % (2.0-8.0); NEUTROPHILS % 81.1 % (40.0-76.0); PLATELET 240 x1000/uL (130-400); RED BLOOD CELL COUNT 4.94 mill/uL (4.7-6.1); RED CELL DISTRIBUTION WIDTH 15.1 % (11.6-14.6)
[2022-01-24 19:32] LABS: CHLORIDE 107 mEq/L (98-107)
[2022-01-24] MEDS ORDERED: NALOXONE HCL 0.4MG/ML VIAL IV PRN (21:00)
[2022-01-24] MEDS ORDERED: HYDROCODONE/ACETAMINOPHEN 5/325MG TABLET PO PRN (21:00)
[2022-01-24] MEDS ORDERED: ONDANSETRON HCL 4MG/2ML INJ IV PRN (21:00)
[2022-01-24 23:20] VITALS: BP 121/70
[2022-01-25] MEDS ORDERED: RIVA10TA PO (03:12)
[2022-01-25 04:00] VITALS: BP 113/65
[2022-01-25 08:00] VITALS: BP 101/71
[2022-01-25] MEDS ORDERED: LORAZEPAM 2MG/ML CPJ IV NR (08:45)
[2022-01-25 11:59] VITALS: BP 128/74
[2022-01-25 16:00] VITALS: BP 132/76
[2022-01-25 20:14] VITALS: BP 121/76
[2022-01-26] VITALS: BP 129/77
[2022-01-26 04:00] VITALS: BP 104/69
[2022-01-26 08:00] VITALS: BP 101/68
[2022-01-26 12:00] VITALS: BP 103/62
[2022-01-26] MEDS: DEXAMETHASONE 4MG/ML 1ML VIAL IV SCH ×3 (13:21→23:17)
[2022-01-26 15:52] VITALS: BP 121/67
[2022-01-26 17:40] LABS: HEMATOCRIT. 39.4 % (42.0-52.0); MEAN CORPUSCULAR HEMOGLOBIN 25.9 pg (28.0-32.0); MEAN CORPUSCULAR VOLUME 78.5 fL (80.0-94.0); MEAN PLATELET VOLUME 8.3 fl (7.4-10.4); PLATELET 253 x1000/uL (130-400); RED BLOOD CELL COUNT 5.02 mill/uL (4.7-6.1); RED CELL DISTRIBUTION WIDTH 15.1 % (11.6-14.6)
[2022-01-26 18:22] LABS: CHLORIDE 105 mEq/L (98-107)
[2022-01-26 18:39] LABS: PLATELET ESTIMATE NORMAL
[2022-01-26 20:00] VITALS: BP 97/66
[2022-01-27] VITALS (31 sets, daily range): BP systolic 93–167; BP diastolic 43–108
[2022-01-27] MEDS: DEXAMETHASONE 4MG/ML 1ML VIAL IV SCH ×4 (06:00→23:15)
[2022-01-27] MEDS ORDERED: LIDOCAINE HCL/EPINEPHRINE 1%-EPI 1:100,000 30 ML VIAL INFIL ONE ×2 (11:01→11:02)
[2022-01-27] MEDS ORDERED: THROMBIN (BOVINE) 5000 UNITS/VIAL TOP ONE ×2 (11:02→11:53)
[2022-01-27] MEDS ORDERED: GENTAMICIN SULF 40MG/ML 2ML VIAL ONE (11:03)
[2022-01-27] MEDS ORDERED: BACITRACIN 15GM TUBE TOP ONE (11:03)
[2022-01-27] MEDS ORDERED: ROCURONIUM BROMIDE 10MG/ML VIAL 5ML IV ONE (12:44)
[2022-01-27] MEDS ORDERED: DEXAMETHASONE 4MG/ML 1ML VIAL ONE (12:44)
[2022-01-27] MEDS ORDERED: ONDANSETRON HCL 4MG/2ML INJ ONE (12:44)
[2022-01-27] MEDS ORDERED: SUCCINYLCHOLINE CHLORIDE 200MG/10ML IV ONE (12:44)
[2022-01-27] MEDS ORDERED: PROPOFOL 200MG/20ML VIAL IV ONE (12:45)
[2022-01-27] MEDS ORDERED: MIDAZOLAM HCL 2 MG/2 ML VIAL ONE ×2 (12:45→12:59)
[2022-01-27] MEDS ORDERED: FENTANYL CITRATE/PF 50MCG/ML 2ML VIAL ONE ×2 (12:45→12:59)
[2022-01-27] MEDS ORDERED: GLYCOPYRROLATE 0.2 MG/ML 2ML VIAL ONE ×2 (14:32)
[2022-01-27] MEDS ORDERED: NEOSTIGMINE METHYLSULFATE 1MG/ML 10 ML VIAL ONE (14:32)
[2022-01-27] MEDS ORDERED: NICARDIPINE 100 MG in SODIUM CHLORIDE 0.9% 60 ML IV PRN (14:45)
[2022-01-27] MEDS ORDERED: HYDROMORPHONE HCL/PF 2MG/ML CPJ ONE (14:49)
[2022-01-27] MEDS: MORPHINE SULFATE 4 MG/ML CPJ (NOT FOR IM USE) IV PRN ×3 (15:42→21:31)
[2022-01-27] MEDS: DEXT 5%/LACTATED RINGERS 1,000 ML IV SCH ×2 (15:42→23:17)
[2022-01-27] MEDS: CEFAZOLIN 1000MG PREMIX 50 ML IV SCH (21:27)
[2022-01-27] MEDS ORDERED: CEFAZOLIN SODIUM 1000MG/VIAL IV SCH (22:00)
[2022-01-28] VITALS (84 sets, daily range): BP systolic 83–136; BP diastolic 41–91
[2022-01-28] MEDS: MORPHINE SULFATE 4 MG/ML CPJ (NOT FOR IM USE) IV PRN (02:41)
[2022-01-28] MEDS: CEFAZOLIN 1000MG PREMIX 50 ML IV SCH ×3 (05:15→21:10)
[2022-01-28] MEDS: DEXAMETHASONE 4MG/ML 1ML VIAL IV SCH ×2 (05:15→12:19)
[2022-01-28] MEDS ORDERED: DIAZEPAM 5 MG TABLET PO NR (10:00)
[2022-01-28] MEDS: DEXT 5%/LACTATED RINGERS 1,000 ML IV SCH (15:41)
[2022-01-29] VITALS (55 sets, daily range): BP systolic 89–158; BP diastolic 49–85
[2022-01-29] MEDS: DEXT 5%/LACTATED RINGERS 1,000 ML IV SCH ×3 (01:56→23:15)
[2022-01-30] VITALS (12 sets, daily range): BP systolic 116–151; BP diastolic 67–87
[2022-01-30] MEDS ORDERED: ACETAMINOPHEN 325MG TABLET PO PRN (09:00)
[2022-01-30] MEDS: DEXT 5%/LACTATED RINGERS 1,000 ML IV SCH (09:14)
[2022-01-30] MEDS ORDERED: HYDR-4001 PO (11:09)
[2022-01-30] MEDS ORDERED: HYDROCODONE/ACETAMINOPHEN 5/325MG TABLET PO PRN (11:45)
== END 2022-01-30 16:04 | disposition home health service (06) | DRG 321 ==
LOC: ER 17:44 → EDBEDREQTM 19:01 → 6WST 20:43 → EDBEDREQ 20:46 → EDBEDREQSVC 20:46 → EDBEDREQTM 20:46 → ENRESERV 22:19 → MICUNO 01-27 15:39
PROVIDERS: ADMIT Internal Medicine; ATTEND Internal Medicine
PROC: 0RG10A0 Fusion of Cervical Vertebral Joint with Interbody Fusion Device, Anterior Approach, Anterior Column, Open Approach (ICD-10-PCS; principal; 2022-01-27)
PROC: 4A11X4G Monitoring of Peripheral Nervous Electrical Activity, Intraoperative, External Approach (ICD-10-PCS; 2022-01-27)
PROC: 0RB30ZZ Excision of Cervical Vertebral Disc, Open Approach (ICD-10-PCS; 2022-01-27)
PROC: 00NW0ZZ Release Cervical Spinal Cord, Open Approach (ICD-10-PCS; 2022-01-27)
DX: M48.02 Spinal stenosis, cervical region (principal); G82.50 Quadriplegia, unspecified; E44.1 Mild protein-calorie malnutrition; M47.12 Other spondylosis with myelopathy, cervical region; M48.03 Spinal stenosis, cervicothoracic region; D64.9 Anemia, unspecified; M50.023 Cervical disc disorder at C6-C7 level with myelopathy; G95.20 Unspecified cord compression; M50.123 Cervical disc disorder at C6-C7 level with radiculopathy; I10 Essential (primary) hypertension; Z20.822 Contact with and (suspected) exposure to COVID-19; R06.02 Shortness of breath; M47.22 Other spondylosis with radiculopathy, cervical region; E78.00 Pure hypercholesterolemia, unspecified; J45.909 Unspecified asthma, uncomplicated; Z86.711 Personal history of pulmonary embolism; Z86.718 Personal history of other venous thrombosis and embolism; Z90.49 Acquired absence of other specified parts of digestive tract; Z68.28 Body mass index [BMI] 28.0-28.9, adult; Z79.01 Long term (current) use of anticoagulants; Z98.1 Arthrodesis status; Z93.3 Colostomy status
CPT/HCPCS: 36415; 71045; 72040; 72141; 76000; 80048; 80053; 85025; 86850; 86900; 87426; 88304; 88311; 93005; 93306; 97116; 97162; 97166; 97168; 99285; C1713; J0330; J0690; J1100; J1170; J1580; J2060; J2250; J2270; J2405; J2704; J2710; J3010; J3490; J7121; L0172; C1762

== ENCOUNTER 2022-04-12 07:44 | Inpatient (IN) | payer MEDICAID, OTHER ==
[~2022-04-12] VITALS: Ht 175.3 cm; Wt 88.5 kg
[~2022-04-12 07:44] MED LIST changes: +FAMO20TA8 MT; -FERR-71 PO
[2022-04-12 10:35] LABS: BASOPHILS % 0.4 % (0.0-2.0); EOSINOPHILS % 1.5 % (0.0-5.0); HEMATOCRIT. 42.7 % (42.0-52.0); HEMOGLOBIN. 13.6 g/dL (14.0-18.0); LYMPHOCYTES % 16.9 % (20.0-50.0); MEAN CORPUSCULAR VOLUME 75.5 fL (80.0-94.0); MONOCYTES % 6.5 % (2.0-8.0); NEUTROPHILS % 74.7 % (40.0-76.0); RED BLOOD CELL COUNT 5.65 mill/uL (4.7-6.1); RED CELL DISTRIBUTION WIDTH 17.1 % (11.6-14.6)
[2022-04-12 10:59] LABS: MEAN PLATELET VOLUME 8.4 fl (7.4-10.4)
[2022-04-12 11:00] LABS: PLATELET 202 x1000/uL (130-400)
[2022-04-12 12:47] LABS: CHLORIDE 106 mEq/L (98-107)
[2022-04-12] MEDS ORDERED: IOHEXOL-350 100 ML BOTTLE ONE (14:12)
[2022-04-12] MEDS ORDERED: ACETAMINOPHEN 325MG TABLET PO ONE (15:45)
[2022-04-12 21:14] VITALS: BP 117/63
[2022-04-12 22:00] VITALS: BP 117/63
[2022-04-13] VITALS: BP 90/60
[2022-04-13] MEDS ORDERED: ACETAMINOPHEN 650MG/20.3ML UDC PO PRN (01:45)
[2022-04-13] MEDS ORDERED: HYDROCODONE/ACETAMINOPHEN 5/325MG TABLET PO PRN (01:45)
[2022-04-13] MEDS ORDERED: ONDANSETRON HCL 4MG/2ML INJ IV PRN (01:45)
[2022-04-13] MEDS ORDERED: CLONIDINE 0.1MG TABLET PO PRN (01:45)
[2022-04-13] MEDS ORDERED: ACETAMINOPHEN 325MG TABLET PO PRN (03:30)
[2022-04-13 04:00] VITALS: BP 91/65
[2022-04-13 05:38] LABS: CLARITY URINE CLEAR (CLEAR); COLOR URINE YELLOW (YELLOW); KETONES URINE 1+ (NEGATIVE); LEUKOCYTE ESTERASE URINE NEGATIVE (NEGATIVE); NITRITE URINE NEGATIVE (NEGATIVE); OCCULT BLOOD URINE NEGATIVE (NEGATIVE); PROTEIN URINE NEGATIVE (NEGATIVE); SPECIFIC GRAVITY URINE 1.035 (1.005-1.030)
[2022-04-13 05:51] LABS: *AMPHETAMINES SCREEN URINE NEGATIVE (NEGATIVE); *BARBITURATES SCREEN URINE NEGATIVE (NEGATIVE); *BENZODIAZEPINES SCREEN URINE NEGATIVE (NEGATIVE); *COCAINE SCREEN URINE NEGATIVE (NEGATIVE); CANNABINOID URINE SCREEN NEGATIVE (NEGATIVE); METHADONE URINE SCREEN NEGATIVE (NEGATIVE); OPIATES URINE SCREEN NEGATIVE (NEGATIVE); PHENCYCLIDINE URINE SCREEN NEGATIVE (NEGATIVE)
[2022-04-13] MEDS: GABAPENTIN 300MG CAPSULE PO SCH ×3 (06:16→21:32)
[2022-04-13 08:00] VITALS: BP 101/70
[2022-04-13] MEDS: ASPIRIN 81MG TABLET PO SCH (08:50)
[2022-04-13] MEDS: FAMOTIDINE 20MG TABLET PO SCH ×2 (08:50→21:32)
[2022-04-13] MEDS ORDERED: ENOXAPARIN 40MG/0.4ML SYR SUBCUT SCH (09:00)
[2022-04-13 11:17] LABS: BASOPHILS % 0.5 % (0.0-2.0); EOSINOPHILS % 3.2 % (0.0-5.0); HEMATOCRIT. 38.3 % (42.0-52.0); HEMOGLOBIN. 12.4 g/dL (14.0-18.0); LYMPHOCYTES % 25.3 % (20.0-50.0); MEAN CORPUSCULAR HEMOGLOBIN 24.2 pg (28.0-32.0); MEAN CORPUSCULAR VOLUME 74.6 fL (80.0-94.0); MEAN PLATELET VOLUME 8.2 fl (7.4-10.4); PLATELET 218 x1000/uL (130-400); RED BLOOD CELL COUNT 5.14 mill/uL (4.7-6.1); RED CELL DISTRIBUTION WIDTH 16.3 % (11.6-14.6)
[2022-04-13] MEDS ORDERED: NALOXONE HCL 0.4MG/ML VIAL IV PRN (11:30)
[2022-04-13] MEDS ORDERED: ENOXAPARIN 40MG/0.4ML SYR SUBCUT NR (11:30)
[2022-04-13 11:37] LABS: CHLORIDE 107 mEq/L (98-107)
[2022-04-13 11:52] LABS: CREATINE KINASE 154 IU/L (39-308); CREATINE KINASE MB FRACTION 1.4 ng/mL (0.5-3.6); HDL CHOLESTEROL 36 mg/dL (40-59); LDL CHOLESTEROL 160 mg/dL (5-100); PHOSPHORUS 2.9 mg/dL (2.5-4.9)
[2022-04-13 12:00] VITALS: BP 120/73
[2022-04-13 15:59] LABS: CREATINE KINASE MB FRACTION 1.5 ng/mL (0.5-3.6)
[2022-04-13 16:07] VITALS: BP 108/67
[2022-04-13 20:00] VITALS: BP 98/62
[2022-04-13] MEDS: ENOXAPARIN 80MG/0.8ML SYR SUBCUT SCH (21:32)
[2022-04-14] VITALS: BP 94/63
[2022-04-14 04:00] VITALS: BP 93/60
[2022-04-14] MEDS: GABAPENTIN 300MG CAPSULE PO SCH ×3 (06:08→21:50)
[2022-04-14 06:54] LABS: PROTHROMBIN TIME 11.2 sec (9.6-11.0)
[2022-04-14 08:00] VITALS: BP 104/67
[2022-04-14] MEDS: ASPIRIN 81MG TABLET PO SCH (09:03)
[2022-04-14] MEDS: ENOXAPARIN 80MG/0.8ML SYR SUBCUT SCH ×2 (09:03→21:51)
[2022-04-14] MEDS: FAMOTIDINE 20MG TABLET PO SCH ×2 (09:03→21:50)
[2022-04-14] MEDS ORDERED: ACETAMINOPHEN 325MG TABLET PO PRN (10:30)
[2022-04-14 12:00] VITALS: BP 114/73
[2022-04-14 16:11] VITALS: BP 103/67
[2022-04-14 20:00] VITALS: BP 101/87
[2022-04-15] VITALS (7 sets, daily range): BP systolic 91–117; BP diastolic 61–76
[2022-04-15] MEDS: GABAPENTIN 300MG CAPSULE PO SCH ×3 (05:19→21:01)
[2022-04-15] MEDS: FAMOTIDINE 20MG TABLET PO SCH ×2 (08:09→21:01)
[2022-04-15] MEDS: ASPIRIN 81MG TABLET PO SCH (08:09)
[2022-04-15] MEDS: ENOXAPARIN 80MG/0.8ML SYR SUBCUT SCH ×2 (08:10→21:01)
[2022-04-15] MEDS ORDERED: APIX5TAB MT (10:36)
[2022-04-15] MEDS ORDERED: ATOR10TA69 MT (10:36)
[2022-04-15 12:16] LABS: HEMATOCRIT 38.4 % (42.0-52.0); HEMOGLOBIN 12.4 g/dL (14.0-18.0); MEAN CORPUSCULAR HEMOGLOBIN 23.9 pg (28.0-32.0); MEAN CORPUSCULAR VOLUME 74.2 fL (80.0-94.0); PLATELET 199 x1000/uL (130-400); RED BLOOD CELL COUNT 5.18 mill/uL (4.7-6.1); RED CELL DISTRIBUTION WIDTH 16.6 % (11.6-14.6)
[2022-04-15 14:20] LABS: CHLORIDE 107 mEq/L (98-107)
[2022-04-16] VITALS: BP 102/64
[2022-04-16 04:00] VITALS: BP 96/64
[2022-04-16] MEDS: GABAPENTIN 300MG CAPSULE PO SCH (05:18)
[2022-04-16 08:00] VITALS: BP 140/56
[2022-04-16] MEDS: ENOXAPARIN 80MG/0.8ML SYR SUBCUT SCH (09:51)
[2022-04-16] MEDS: ASPIRIN 81MG TABLET PO SCH (09:51)
[2022-04-16] MEDS: FAMOTIDINE 20MG TABLET PO SCH (09:51)
[2022-04-16 12:09] VITALS: BP 108/72
[2022-04-16 14:14] VITALS: BP 108/72
== END 2022-04-16 17:38 | disposition home or self-care (01) | DRG 203 ==
LOC: ER 07:44 → EDBEDREQ 17:44 → 3WST 21:09
PROVIDERS: ADMIT Internal Medicine; ATTEND Internal Medicine
DX: R07.89 Other chest pain (principal); I82.431 Acute embolism and thrombosis of right popliteal vein; E78.00 Pure hypercholesterolemia, unspecified; I10 Essential (primary) hypertension; J44.9 Chronic obstructive pulmonary disease, unspecified; Z93.3 Colostomy status; Z86.711 Personal history of pulmonary embolism; Z87.891 Personal history of nicotine dependence
CPT/HCPCS: 36415; 71045; 71275; 80048; 80053; 80061; 80305; 81003; 82550; 82553; 83735; 83880; 84100; 84443; 84484; 85025; 85027; 93005; 93306; 93970; 99285; J1650; L0172; Q9967